=== PATIENT | female | born 2005 | race Hispanic/Latino ===

== ENCOUNTER 2024-01-17 17:51 | Emergency (ER) | payer BC, SELFPAY ==
[2024-01-17 17:55] VITALS: BP 141/97
--- NOTE | 2024-01-17 19:47 | ED.GENMED ---
History of Present Illness
General
Chief Complaint: Abdominal Symptoms
Source: patient
Exam Limitations: none
Time Seen by Provider: 01/17/24 19:28
Travel History
Have you had any contact with someone who has COVID-19?: No
Do you have any symptoms of coronavirus? Fever > 100 degrees, chills, cough, shortness of breath, sore throat, loss of taste or smell, muscle aches, or headache?: No
History of Present Illness
History of Present Illness:
18-year-old female presents with 2 to 3 days worth of whitish seedlike appearing object in her stool. They have little dimple on the end. She noticed several today as well. She denies abdominal pain but does note some bloating. No fever. No
lack of appetite or weight loss. She is concerned she may have worms of some type. No other this time
Phy Exam
Physical Exam
Physical Exam:
General: Well appearing female, NAD
HEENT: NC/AT
Abd: Soft, nontender, nondistended
Course
Orders/Labs/Results
Orders:
Orders
01/17/24 20:22
Ova & Parasites Giardia/Crypto AG [Giardia/Cryptosporidium Ag] Urgent
AJITH Source: Feces/Stool
Specimen Description:
Date Specimen was Collected: 01/17/24
Time Specimen was Collected: 20:12
Stool Culture Urgent
AJITH Source: Feces/Stool
Specimen Description:
Date Specimen was Collected: 01/17/24
Time Specimen was Collected: 20:12
Stool For WBC Urgent
AJITH Source: Feces/Stool
Specimen Description:
Date Specimen was Collected: 01/17/24
Time Specimen was Collected: 20:12
Vital Signs
Initial and Last Documented VS:
Initial Vital Signs
Temp Pulse Resp BP Pulse Ox
98.0 F 115 19 141/97 100
01/17/24 17:55 01/17/24 17:55 01/17/24 17:55 01/17/24 17:55 01/17/24 17:55
Last Documented Vital Signs
Temp Pulse Resp BP Pulse Ox
98.0 F 115 19 141/97 100
01/17/24 17:55 01/17/24 17:55 01/17/24 17:55 01/17/24 17:55 01/17/24 17:55
MDM/Problems Addressed
Differential Diagnosis Includes:
Patient questions the possibility of parasite or worm in her stool. Will have patient try to give stool culture here. She is nontoxic with benign abdomen otherwise
*Critical Care Note
Total Time (30-74mins, 75-104mins- exclusive of procedures): Not Applicable
Update Note
Update Note:
Patient was able to provide stool sample. These are pending. Patient will receive a call if either of them are positive. return precautions were given
ED Attending Note
-
Portions of this chart may have been created with voice recognition software.� Occasional wrong word or��sound alike� substitutions may have occurred due to the inherent limitations of voice recognition software.
Discharge Plan
Departure
Patient Disposition: Home (Routine Discharge)
Date of Disposition: 01/17/24
Time of Disposition: 21:25
Patient with high blood pressure during this ER visit?: No
Discharge Problem:
Change in stool
Instructions: Ova and Parasite Test
Referrals:
UNKNOWN - PT DOES,NOT KNOW [Family Provider] -
Activity Restrictions/Additional Instructions:
You should receive a call if your stool cultures are positive. Keep an eye out for any change in the bowel movement otherwise. Return if worse follow-up with your family doctor
Interventions
Interventions:
*General Assessment Last Done: 01/17/24 17:56
*ED COVID-19 Vaccine History Last Done: 01/17/24 17:55
IW-Myunhg-Qvtdbtqvxy Assessment Last Done: 01/17/24 19:30
Discharge Date and Time
Print Language: WELSH
== END 2024-01-17 22:39 | disposition home or self-care (01) ==
LOC: EMR 17:51
PROVIDERS: EMERGENCY PHYSICIAN Emergency Medicine
DX: R19.5 Other fecal abnormalities (principal); R14.0 Abdominal distension (gaseous)
CPT/HCPCS: 99283; 87045; 87046; 87077; 87328; 87329; 87427; 89055